=== PATIENT | male | born 1975 | race African-American/Black ===

== ENCOUNTER 2017-09-09 22:53 | Emergency (ER) | payer OTHER ==
[~2017-09-09] VITALS: Ht 177.8 cm; Wt 99.8 kg
[2017-09-10] MEDS ORDERED: Bacitracin Oint UD TOPIC ONE (00:15)
[2017-09-10] MEDS ORDERED: CEPHALEXIN500 MG ORAL (00:23)
--- NOTE | 2017-09-10 00:23 | Emergency Room Report ---
History of Present Illness General Chief Complaint: Edema Source: Patient Present Illness HPI Is a 42-year-old male with a history of hypertension and renal failure on hemodialysis. He presents with chief complaint of swelling and drainage from his wound. He has an emergent dialysis catheter placed in his 8 groin last week. The removed it few days ago. He noticed some clear drainage from it today. No fever. No chills but no redness. No pain. Allergies: Coded Allergies: No Known Allergies (Unverified , 09/09/17) Patient History Past Medical History: see triage record, old chart reviewed, HTN, renal disease , dialysis Past Surgical History: other Pertinent Family History: none Social History: Denies: smoking Immunizations: other Reviewed Nursing Documentation: PMH: Agreed; PSxH: Agreed Nursing Documentation-PMH Past Medical History: No History, Except For Hx Dialysis: Yes - M,W,F. Permacath on right chest. Review of Systems Eye: Denies: eye pain, blurred vision ENT: Denies: ear pain, nose congestion, throat swelling Respiratory: Denies: cough, shortness of breath Cardiovascular: Denies: chest pain, palpitations Gastrointestinal: Denies: abdominal pain, diarrhea, nausea, vomiting Musculoskeletal: Denies: back pain, joint pain Skin: Denies: rash Neurological: Denies: headache, numbness Endocrine: Denies: increased thirst, increased urine Hematologic/Lymphatic: Denies: easy bruising All Other Systems: negative except mentioned in HPI Physical Exam Vital Signs Date Time Temp Pulse Resp B/P (MAP) Pulse Ox O2 Delivery O2 Flow Rate FiO2 09/09/17 23:39 98.1 110 16 145/92 95 Room Air 98.1 vitals with high blood pressure Sp02 EP Interpretation: reviewed, normal General Appearance: well appearing, no apparent distress, alert Head: normocephalic, atraumatic Eyes: bilateral eye PERRL, bilateral eye EOMI ENT: hearing grossly normal, normal pharynx Neck: full range of motion, supple, no meningismus Respiratory: chest non-tender, lungs clear, normal breath sounds Cardiovascular #1: regular rate, rhythm, no murmur Gastrointestinal: normal bowel sounds, non tender, no mass, no organomegaly, no bruit, non-distended Musculoskeletal: back normal, gait/station normal, normal range of motion, other - Right groin: Puncture wound is clean. There is clear liquid drainage. Is very scant. Some mild edema. No fever chills but no tenderness. Neurologic: alert, oriented x3 Psychiatric: mood/affect normal Skin: warm/dry Medical Decision Making Diagnostic Impression: Primary Impression: Visit for wound check Additional Impression: Hypertension Qualified Codes: I10 - Essential (primary) hypertension ER Course Patient with wound check. No evidence of infection. Because of his history, we 'll put him on prophylactic antibiotics. We'll discharge home. Blood pressures a little elevated. He scheduled for dialysis in the morning. No evidence of end organ damage. Last Vital Signs Date Time Temp Pulse Resp B/P (MAP) Pulse Ox O2 Delivery O2 Flow Rate FiO2 09/10/17 00:05 110 16 Room Air 09/09/17 23:39 98.1 145/92 95 98.1 Status: unchanged Disposition: HOME, SELF-CARE Condition: Stable Scripts Cephalexin* (KEFLEX*) 500 Mg Capsule 500 MG ORAL TID, #21 CAP Prov: CHRISTELLE KELLY M.D. 09/10/17 CHRISTELLE KELLY M.D. Sep 10, 2017 00:23
[2017-09-10 00:41] VITALS: BP 145/92
== END 2017-09-10 00:45 | disposition home or self-care (01) ==
LOC: EMR 23:50
DX: Z48.01 Encounter for change or removal of surgical wound dressing (principal); I12.0 Hypertensive chronic kidney disease with stage 5 chronic kidney disease or end stage renal disease; N18.6 End stage renal disease; Z99.2 Dependence on renal dialysis
CPT/HCPCS: 99283